=== PATIENT | female | born 1975 | race Caucasian/White ===

== ENCOUNTER → 2016-07-30 | Outpatient (CLI) | payer OTHER | LOC: FIMAGING 12:40 | PROVIDERS: ATTEND Advanced Practice Midwife | DX: O28.8 Other abnormal findings on antenatal screening of mother (principal); Z3A.21 21 weeks gestation of pregnancy; O09.522 Supervision of elderly multigravida, second trimester ==

== ENCOUNTER → 2016-09-24 | Outpatient (CLI) | payer OTHER | LOC: FIMAGING 12:36 | PROVIDERS: ATTEND Advanced Practice Midwife | DX: O09.523 Supervision of elderly multigravida, third trimester (principal); Z3A.29 29 weeks gestation of pregnancy; Z87.59 Personal history of other complications of pregnancy, childbirth and the puerperium ==

== ENCOUNTER → 2018-08-24 | Outpatient (CLI) | payer OTHER | LOC: FIMAGING 10:29 | PROVIDERS: ATTEND Advanced Practice Midwife | DX: N63.32 Unspecified lump in axillary tail of the left breast (principal); L02.214 Cutaneous abscess of groin ==